=== PATIENT | male | born 1980 ===

== ENCOUNTER 2018-01-12 01:55 | Emergency (ER) | payer SELFPAY ==
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
[2018-01-12 04:15] VITALS: BP 115/68; PULSE 90; RESP 20; TEMP 98.3
[2018-01-12 04:28] VITALS: O2SAT 99
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
== END 2018-01-12 04:10 | disposition home or self-care (01) ==
LOC: C.ER 01:55
DX: S01.81XA Laceration without foreign body of other part of head, initial encounter (principal); Y04.0XXA Assault by unarmed brawl or fight, initial encounter

== ENCOUNTER 2018-09-25 08:45 | Emergency (ER) | payer OTHER ==
[2018-09-25 08:48] VITALS: O2SAT 98
[2018-09-25 09:10] VITALS: BP 130/72; PULSE 65; RESP 16; TEMP 98.4
--- NOTE | 2018-09-25 09:15 | C.PDOC ---
History Of Present Illness 38 year old male presents to the ED complaining of discomfort and a lump to right groin area for 1 week. For the past week, patient noticed it looks a little larger. The discomfort worsens when working out or lifting. Otherwise he denies abdominal pain, vomiting, diarrhea, constipation, urinary symptoms, or penile pain or discharge. Time Seen by Provider: 09/25/18 09:03 Chief Complaint (Nursing): Groin Pain History Per: Patient History/Exam Limitations: no limitations Onset/Duration Of Symptoms: Days Current Symptoms Are (Timing): Still Present Severity: Mild Pain Scale Rating Of: 4 Past Medical History Reviewed: Historical Data, Nursing Documentation, Vital Signs Vital Signs: Last Vital Signs Temp 98.4 F 09/25/18 09:08 Pulse 65 09/25/18 09:08 Resp 16 09/25/18 09:08 BP 130/72 09/25/18 09:08 Pulse Ox 98 09/25/18 09:08 - Medical History PMH: Hypercholesterolemia Denies: Chronic Kidney Disease Family History: States: Unknown Family Hx - Social History Hx Alcohol Use: Yes Hx Substance Use: No - Immunization History Hx Tetanus Toxoid Vaccination: No Hx Influenza Vaccination: No Hx Pneumococcal Vaccination: No Review Of Systems Except As Marked, All Systems Reviewed And Found Negative. Constitutional: Negative for: Fever, Chills Respiratory: Negative for: Shortness of Breath Gastrointestinal: Negative for: Nausea, Vomiting, Diarrhea, Constipation Genitourinary: Positive for: Other (right groin pain/lump). Negative for: Dysuria, Hematuria, Penile Discharge, Rash, Penile Pain Musculoskeletal: Negative for: Back Pain Neurological: Negative for: Weakness, Numbness Physical Exam - Physical Exam Appears: Well, Non-toxic, No Acute Distress Skin: Warm, Dry, No Rash Head: Atraumatic, Normacephalic Eye(s): bilateral: Normal Inspection Neck: Normal ROM Chest: Symmetrical Cardiovascular: Rhythm Regular, No Murmur Respiratory: Normal Breath Sounds, No Accessory Muscle Use Gastrointestinal/Abdominal: Soft, No Tenderness, No Distention, No Guarding, No Rebound Male Genital: Normal Inspection (no penile discharge), No Scrotal Swelling, Other (Right inguinal hernia, soft and reducible, with no skin color changes) Extremity: Bilateral: Atraumatic, Normal Color And Temperature, Normal ROM Neurological/Psych: Oriented x3, Normal Speech Gait: Steady Additional Physical Exam Comments: ROLDAN Vences chaperoned exam ED Course And Treatment O2 Sat by Pulse Oximetry: 98 (RA) Pulse Ox Interpretation: Normal Medical Decision Making Medical Decision Making: Impression: Right inguinal hernia Patient appears well and in no acute distress. Abdomen soft, nontender, right inguinal area is not swollen or tender, no signs of strangulation. Scrotum and penis unremarkable, no swelling or tenderness. There is no further workup indicated at this time. Recommend the patient follow up with general surgery for consult. Advise to take analgesics and avoid strenuous lifting. Patient expressed understanding and feels comfortable going home. Disposition Counseled Patient/Family Regarding: Diagnosis, Need For Followup, Rx Given - Disposition Referrals: Ryan Mario MD [Staff Provider] - Ankur Beltran MD [Staff Provider] - Valentín Landers MD [Staff Provider] - Richard Strange MD [Staff Provider] - Kelly Baum MD [Staff Provider] - Disposition: HOME/ ROUTINE Disposition Time: 09:12 Condition: GOOD Additional Instructions: Renetta Tylenol o Advil para cualquier dolor. evitar levantar objetos pesados o hacer esfuerzos Pngase en contacto con cualquiera de los cirujanos que figuran en la lista para consultar sobre la posible reparacin de kb hernia Take Tylenol or Advil for any pain avoid heavy lifting or straining contact any of the surgeons listed for consultation regarding possible hernia repair Prescriptions: Ibuprofen [Motrin] 600 mg PO Q8 #30 tab Instructions: Groin Hernia (DC) Forms: [employer] (Cape Verdean) Print Language: MALAY - Clinical Impression Clinical Impression: Hernia, inguinal, right - PA / WAFER FABRICATOR / Resident Statement MD/DO has reviewed & agrees with the documentation as recorded. - Scribe Statement The provider has reviewed the documentation as recorded by the Briannaibkendell Bangura All medical record entries made by the Scribe were at my direction and personally dictated by me. I have reviewed the chart and agree that the record accurately reflects my personal performance of the history, physical exam, medical decision making, and the department course for this patient. I have also personally directed, reviewed, and agree with the discharge instructions and disposition.
== END 2018-09-25 09:24 | disposition home or self-care (01) ==
LOC: C.ER 08:45
DX: K40.90 Unilateral inguinal hernia, without obstruction or gangrene, not specified as recurrent (principal); E78.00 Pure hypercholesterolemia, unspecified

== ENCOUNTER 2018-11-24 05:37 | Day surgery (SDC) | payer OTHER ==
[2018-10-29 18:09] VITALS: BMI 29.2
[2018-11-24] MEDS ORDERED: Bupivacaine HCl 0.5% PF (10 ml) Inj ONE (07:44)
[2018-11-24] MEDS ORDERED: ceFAZolin 1 gm in NS 1 GM/100 ML BAG IVPB ONE (07:45)
[2018-11-24] MEDS ORDERED: Propofol 10 mg/ml Inj (20 ML) ONE (08:03)
[2018-11-24] MEDS ORDERED: Midazolam 2 MG/2 ML VIAL ONE (08:03)
--- NOTE | 2018-11-24 09:28 | PCM.SURG1 ---
Surgeon's Initial Post Op Note - Surgeon's Notes Surgeon: Dr. Baum Pharmacy Student: Dr. Coombs PGY4 Type of Anesthesia: General LMA Pre-Operative Diagnosis: right inguinal hernia Operative Findings: right indirect inguinal hernia Post-Operative Diagnosis: right inguinal hernia Operation Performed: right inguinal hernia repair with mesh Specimen/Specimens Removed: hernia sac Estimated Blood Loss: EBL {In ML}: 10 Drains Used: No Drains Post-Op Condition: Good Date of Surgery/Procedure: 11/24/18 Time of Surgery/Procedure: 09:28
[2018-11-24] MEDS ORDERED: Oxycodone/Acetaminophen 5/325 mg Tab PO PRN (09:30)
[2018-11-24] MEDS ORDERED: Lactated Ringer's 1,000 ML IV SCH (09:45)
[2018-11-24 10:08] VITALS: O2SAT 100
[2018-11-24] MEDS: HYDROmorphone 0.5 mg/0.5 ml ISec IVP PRN ×2 (10:20→10:38)
[2018-11-24 11:50] VITALS: BP 138/71; PULSE 77; RESP 18; TEMP 98
--- NOTE | 2018-11-26 04:20 | OP ---
PROCEDURE DATE: 11/24/2018 PREOPERATIVE DIAGNOSIS: Right inguinal hernia. POSTOPERATIVE DIAGNOSIS: Right indirect inguinal hernia. OPERATION PERFORMED: Repair of right inguinal hernia with Prolene mesh. PROCEDURE IN DETAIL: After informed consent was obtained, the risks and benefits of the procedure were explained to the patient. The patient was brought into the operative suite, prepped and draped in the usual sterile fashion. A time-out was had identifying appropriate patient, procedure, and site of surgery to be performed. The right inguinal ligament was identified from the pubic tubercle to the ASIS. Approximately two fingerbreadths above the pubic tubercle, a transverse incision was made using a #15 blade scalpel, approximately 4 cm in length. Dissection was then carried down with electrocautery dissection to Scarper's fascia maintaining hemostasis. The external oblique was then identified and further cleaned using blunt dissection. The external oblique was then incised in the length of its fibers with a 15 blade scalpel. Metzenbaum scissors were then used to extend the incision in both directions opening up the external oblique down to the external ring. The external oblique was then grasped with Ochsner on both sides. The cord structures above the hernia sac were freed up circumferentially and a Dilip drain was placed around it. The hernia sac was then identified and the anterior medial portion of the hernia sac was stripped down and then grasped with two hemostats. Once the hernia sac was freed from the cord and cord structures an 0 Vicryl suture ligature was placed at the base of the hernia sac. Once the hernia sac was tied off, it was amputated and the hernia sac stump was then placed back intra-abdominally. Attention was then directed placing the plug into the indirect hernia defect. The mesh was sutured to the transversalis fascia using 2-0 Prolene suture. Once this was secure, the Prolene mesh was then used to cover the floor. The mesh was first sutured to the pubic tubercle medially along the ilioinguinal ligament inferiorly and along the conjoined tendons superiorly with the slit surrounding the cord and cord structures. The ilioinguinal nerve was identified and salvaged and was left above the repair of the mesh and below the external oblique and remained intact throughout the operation. The external oblique was then closed over the roof with running 0-Vicryl suture to recreate the external ring. Scarper's fascia was then approximated with interrupted 3-0 Vicryl sutures and skin was closed using a running subcuticular 4-0 Monocryl suture. Dermabond was then applied over the skin. The patient tolerated the procedure well and was transferred into recovery room in good stable condition. At the end of the surgery, all counts of instrument, needles, and sponges were deemed correct. COMPLICATIONS: None. BLOOD LOSS: Approximately 20 mL. SPECIMENS: Hernia sac. Genny-Sayda Coombs DO Kelly Baum MD JOSIE
== END 2018-11-24 12:40 | disposition home or self-care (01) ==
LOC: C.SDS 05:37
PROVIDERS: ATTEND Specialist
DX: K40.90 Unilateral inguinal hernia, without obstruction or gangrene, not specified as recurrent (principal)
CPT/HCPCS: 49505; 88302; C1781; J0690; J1170; J2250; J2704; J3010